=== PATIENT | male | born 1990 | race Caucasian/White ===

== ENCOUNTER 2022-11-16 11:09 | Emergency (ER) | payer BC, SELFPAY ==
--- NOTE | 2022-11-16 11:27 | ED.EAR ---
HPI - Ear Problem General Chief complaint: Ear Stated complaint: lt ear inf Time Seen by Provider: 11/16/22 11:27 Source: patient and RN notes reviewed History of Present Illness HPI Narrative: Patient is a 32-year-old male who presents to urgent care with complaints of left ear pain since . Patient has been using ear wax drops [id number] as well as Advil. Denies any other upper respiratory complaints or fever. Acute distress. Patient aware of the plan care. Some parts of this dictation were generated by voice recognition software and may contain typographical and/or grammatical inaccuracies. Related Data Home Medications Medication Instructions Recorded Confirmed buprenorphine 8 mg-naloxone 2 mg film 11/16/22 sublingual film Allergies Allergy/AdvReac Type Severity Reaction Status Date / Time No Known Allergies Allergy Verified 11/16/22 11:37 Review of Systems Review of Systems: CONSTITUTIONAL: Denies fever, chills, or sweats. EYES: Denies visual changes, redness, or discharge. ENT: Denies rhinorrhea, congestion, sore throat. Reports of left otalgia CARDIOVASCULAR: Denies chest pain, palpitations, or edema. RESPIRATORY: Denies cough or dyspnea. GASTROINTESTINAL: Denies abdominal pain, nausea, vomiting, or diarrhea. GENITOURINARY: Denies dysuria or hematuria. SKIN: Denies rash or itching. MUSCULOSKELETAL: Denies back pain, joint pain, or myalgia. NEUROLOGIC: Denies headache, numbness, or weakness. All other systems reviewed are negative, except as documented in HPI. PMFSH Comments At the time of my signature, I reviewed and agree with the nursing past medical, surgical, social, and family history. There is no relevant family history pertinent to the patient complaint. Exam Narrative: GENERAL: This is a well-nourished, well-developed patient, in no apparent distress. HEAD: normocephalic, atraumatic. EYES: PERRL. Sclera clear/white. Vision is grossly intact. EARS: External ears normal, auditory canals clear and without drainage, unable to visualize left TM due to cerumen impaction. Right TM normal without perforation. Hearing grossly intact. NOSE: External nose normal with no obvious nasal discharge, nares without redness, no rhinorrhea. THROAT: Mucous membranes moist, posterior pharynx clear. Mild postnasal drainage NECK: Neck supple SKIN: warm, intact with no suspicious lesions or rash, good texture and turgor. NEURO: awake, alert, and oriented to person, place and time. There were no obvious focal neurologic abnormalities. EXTREMITIES: No clubbing, cyanosis, or edema. Course Course Level of Care: Express Care Visit Vital Signs Vital signs: Vital Signs Temperature 98.3 F 11/16/22 11:41 Pulse Rate 114 H 11/16/22 11:41 Respiratory Rate 12 11/16/22 11:41 Blood Pressure 174/115 H 11/16/22 11:41 Pulse Oximetry 100 11/16/22 11:41 Oxygen Delivery Room Air 11/16/22 11:41 Temperature 98.3 F 11/16/22 11:41 Pulse Rate 114 H 11/16/22 11:41 Respiratory Rate 12 11/16/22 11:41 Blood Pressure 174/115 H 11/16/22 11:41 Pulse Oximetry 100 11/16/22 11:41 Oxygen Delivery Room Air 11/16/22 11:41 Reviewed- Patient is informed that they may have pre-hypertension or hypertension based on a blood pressure reading in the department. I recommend the patient call the primary care provider listed on their discharge instructions or a physician of their choice this week to arrange follow-up for further evaluation of possible pre-hypertension or hypertension. Procedures Ear Wax Removal Left Ear: Cerumenolytic Used: other (Warm water irrigation) Results: Re-examined: cerumen removed completely TM Examination: TM(s) intact, normal appearance Ear Canal Exam: atraumatic Patient Tolerated Procedure: well and no complications Complications: no problems Additional Comments: Hearing improved Medical Decision Making MDM Narrative Me
[2022-11-16 11:41] VITALS: BP 174/115; PULSE 114; RESP 12; TEMP 36.8; O2SAT 100
== END 2022-11-16 12:06 | disposition home or self-care (01) ==
PROVIDERS: Emergency Provider Nurse Practitioner Family
DX: H61.22 Impacted cerumen, left ear (principal)
CPT/HCPCS: 69209; 99203; G0463